=== PATIENT | female | born 1945 | race Caucasian/White ===

== ENCOUNTER 2019-11-16 06:23 | Day surgery (SDC) | payer MEDICARE, BC ==
[2019-11-16] MEDS ORDERED: Sodium Chloride 0.9% 1,000 ML IV SCH (07:00)
[2019-11-16] MEDS ORDERED: Midazolam 1 MG/ML 2 ML SDV ONE (07:20)
[2019-11-16] MEDS ORDERED: fentaNYL 100 MCG/2 ML SDV ONE (07:20)
[2019-11-16] MEDS ORDERED: Propofol 200 MG/20 ML SDV ONE (07:20)
--- NOTE | 2019-11-17 07:49 | PROC ---
DATE OF PROCEDURE: 11/16/2019 SURGEON: David Joel MD PROCEDURE: Screening colonoscopy. INDICATION: Screening. PREPROCEDURE DIAGNOSIS: Screening colonoscopy. POSTPROCEDURE DIAGNOSIS: Screening colonoscopy with normal findings. DESCRIPTION OF PROCEDURE: Risks and goals of the procedure reviewed with the patient, and she gave informed consent to proceed. She was brought back to the operating room. IV sedation was provided by Anesthesia Service. She was placed in a left lateral decubitus position. Time-out was held prior to the procedure to confirm right patient, right site, right procedure. There were no safety concerns. After adequate sedation was achieved, digital rectal exam was performed, which was unremarkable. Following this, the flexible colonoscope was placed and advanced out through the colon to the cecum. She was noted to have a fairly long redundant colon. Scope was then slowly withdrawn back through the colon. There were no significant abnormalities or mucosal findings seen. It was retroflexed in the rectum, then straightened and removed. The procedure was otherwise completed without complication. David Joel MD /[id number]
== END 2019-11-16 09:24 | disposition home or self-care (01) ==
LOC: JP.SDS 06:23
PROVIDERS: ATTEND Hospitalist
DX: Z12.11 Encounter for screening for malignant neoplasm of colon (principal); Q43.8 Other specified congenital malformations of intestine; I10 Essential (primary) hypertension; E78.5 Hyperlipidemia, unspecified; K21.9 Gastro-esophageal reflux disease without esophagitis; Z79.82 Long term (current) use of aspirin; Z79.899 Other long term (current) drug therapy
CPT/HCPCS: G0121; J2250; J2704; J3010; J7030

== ENCOUNTER 2024-04-11 18:43 | Emergency (ER) | payer MEDICARE, BC ==
[2024-04-11 20:25] LABS: BASOPHILS ABSOLUTE AUTO 0.04 K/uL (0.00-0.10); BASOPHILS PERCENT AUTO 0.7 % (0.1-1.3); EOSINOPHILS PERCENT AUTO 1.7 % (0.0-5.4); HEMATOCRIT 35.8 % (34.3-46.0); HEMOGLOBIN 12.6 g/dL (11.2-15.5); IMMATURE GRAN ABSOLUTE AUTO 0.03 K/uL (0.00-0.23); IMMATURE GRAN PERCENT AUTO 0.5 % (0.0-0.7); LYMPHOCYTES ABSOLUTE AUTO 1.45 K/uL (0.8-3.3); LYMPHOCYTES PERCENT AUTO 24.6 % (11.4-47.7); MEAN CORPUSCULAR HEMOGLOBIN 30.8 pg (31.6-35.5); MEAN CORPUSCULAR HGB CONC 35.2 g/dL (31.6-35.5); MEAN CORPUSCULAR VOLUME 87.5 fL (81.4-99.0); MONOCYTES ABSOLUTE AUTO 0.78 K/uL (0.20-0.90); MONOCYTES PERCENT AUTO 13.2 % (3.3-12.6); NEUTROPHILS PERCENT AUTO 59.3 % (40.0-78.1); PLATELET COUNT,PLT 240 K/uL (130-375); RED BLOOD CELL COUNT 4.09 M/uL (3.77-5.24); WHITE BLOOD CELL COUNT,WBC 5.9 K/uL (3.2-11.0)
[2024-04-11 20:39] LABS: ANION GAP 11.2 mmol/L (5.0-14.0); CALCIUM 9.8 mg/dL (8.5-10.1); CREATININE 0.7 mg/dL (0.6-1.0); EST CRCL DRUG DOSING (CG) 61.17 mL/min; POTASSIUM,K 3.2 mmol/L (3.6-5.2)
[2024-04-11] MEDS: Ondansetron 4 MG Tab.DIS PO ONE (21:07)
== END 2024-04-11 22:16 | disposition home or self-care (01) ==
LOC: JP.ED 18:43
DX: S06.0X0A Concussion without loss of consciousness, initial encounter (principal); I10 Essential (primary) hypertension; E78.00 Pure hypercholesterolemia, unspecified; K21.9 Gastro-esophageal reflux disease without esophagitis; Z90.49 Acquired absence of other specified parts of digestive tract; Z87.891 Personal history of nicotine dependence; Z79.899 Other long term (current) drug therapy; Z79.82 Long term (current) use of aspirin; W01.0XXA Fall on same level from slipping, tripping and stumbling without subsequent striking against object, initial encounter
CPT/HCPCS: 36415; 70450; 72125; 76377; 80048; 85025; 99283; 99284; Q0162

== ENCOUNTER 2025-02-11 19:46 | Emergency (ER) | payer MEDICARE, BC ==
[2025-02-11] MEDS ORDERED: Bupivacaine 0.5% 50 ML MDV ONE (21:51)
[2025-02-11] MEDS: Lidocaine 1% 20 ML MDV INJECT ONE (21:54)
[2025-02-11] MEDS: Bupivacaine 0.5% 50 ML MDV INJECT ONE (21:54)
== END 2025-02-11 22:31 | disposition home or self-care (01) ==
LOC: JP.ED 19:46
DX: S83.91XA Sprain of unspecified site of right knee, initial encounter (principal); E78.00 Pure hypercholesterolemia, unspecified; M25.461 Effusion, right knee; I10 Essential (primary) hypertension; Z79.82 Long term (current) use of aspirin; Z79.899 Other long term (current) drug therapy; Z90.49 Acquired absence of other specified parts of digestive tract
CPT/HCPCS: 20610; 73560; 99283; J0665